=== PATIENT | male | born 1980 | race Caucasian/White ===

== ENCOUNTER 2016-09-05 14:02 | Emergency (ER) | payer OTHER ==
[~2016-09-05 14:02] MED LIST: FLE10 PO; IBUPROFEN400 MG PO; PRE20 PO; PREDNISONE20 MG PO; PREDNISONE50 MG PO
[2016-09-05 16:08] VITALS: BP 121/75
== END 2016-09-05 16:08 | disposition home or self-care (01) ==
LOC: ED 14:02
DX: M10.072 Idiopathic gout, left ankle and foot (principal); M10.011 Idiopathic gout, right shoulder; E03.9 Hypothyroidism, unspecified; M06.9 Rheumatoid arthritis, unspecified
CPT/HCPCS: J1100; J1885

== ENCOUNTER 2017-03-12 01:17 | Emergency (ER) | payer OTHER ==
[~2017-03-12] VITALS: Ht 170.2 cm; Wt 96.2 kg
[2017-03-12 01:24] VITALS: Ht 170.2 cm; Wt 96.2 kg
[2017-03-12 04:38] VITALS: BP 137/58
== END 2017-03-12 04:38 | disposition left against medical advice (07) ==
LOC: ED 01:17
DX: Z53.21 Procedure and treatment not carried out due to patient leaving prior to being seen by health care provider (principal)

== ENCOUNTER 2017-04-04 13:24 | Emergency (ER) | payer OTHER ==
[2017-04-04 14:45] VITALS: BP 134/62
== END 2017-04-04 14:45 | disposition home or self-care (01) ==
LOC: ED 13:24
DX: J02.9 Acute pharyngitis, unspecified (principal); M10.072 Idiopathic gout, left ankle and foot; M06.9 Rheumatoid arthritis, unspecified
CPT/HCPCS: J1885

== ENCOUNTER 2019-11-24 13:20 | Emergency (ER) | payer OTHER ==
[~2019-11-24] VITALS: Ht 170.2 cm; Wt 98.4 kg
[2019-11-24 13:28] VITALS: Ht 170.2 cm; Wt 98.4 kg
[2019-11-24 14:28] VITALS: BP 130/84
== END 2019-11-24 14:28 | disposition home or self-care (01) ==
LOC: ED 13:20
DX: S90.111A Contusion of right great toe without damage to nail, initial encounter (principal); S90.121A Contusion of right lesser toe(s) without damage to nail, initial encounter; W20.8XXA Other cause of strike by thrown, projected or falling object, initial encounter; Y93.89 Activity, other specified; Y92.89 Other specified places as the place of occurrence of the external cause; Y99.8 Other external cause status